=== PATIENT | female | born 1980 | race Caucasian/White ===

== ENCOUNTER → 2021-10-14 16:00 | Outpatient (CLI) | payer BC, SELFPAY ==
--- NOTE | ~2021-10-14 | MM_ITS ---
EXAMINATION: MM scrn delores implant BI w corey HISTORY: Screening mammogram TECHNIQUE: Craniocaudal and mediolateral oblique 3-D tomosynthesis images with implant displacement a nd synthetic 2-D images were generated. Craniocaudal and mediolateral oblique views of the breasts wi thout implant displacement were obtained using full field digital mammography. CAD analysis was submi tted and interpreted. COMPARISON: No prior mammogram is available for comparison at this institution. BREAST PARENCHYMAL COMPOSITION: The breasts are heterogeneously dense, which may obscure small masses . FINDINGS: There is a mass in the lower central aspect of the left breast, middle third. There are no suspicious masses, calcifications or architectural distortion. There is no bilateral subpectoral sali ne implants. IMPRESSION: 1. Focal left breast mass, lower central breast. 2. Additional mammographic views and possible breast ultrasound are recommended. BI-RADS Category 0: Incomplete: Needs additional imaging evaluation. Reviewed, dictated and finalized at location A. UTIVE ASSISTANT TO GENERAL COUNSEL IMPRESSION: 1. Focal left breast mass, lower central breast. 2. Additional mammographic views and possible breast ultrasound are recommended . BI-RADS Category 0: Incomplete: Needs additional imaging evaluation.
== END ==
PROVIDERS: Visit Provider Obstetrics & Gynecology Gynecology
DX: Z12.31 Encounter for screening mammogram for malignant neoplasm of breast (principal); R92.8 Other abnormal and inconclusive findings on diagnostic imaging of breast
CPT/HCPCS: 77063; 77067

== ENCOUNTER → 2021-10-19 08:21 | Outpatient (CLI) | payer BC, SELFPAY ==
--- NOTE | ~2021-10-19 | MMUS_ITS ---
EXAMINATION: MM diag delores implant LT w corey, US breast LT limited HISTORY: Left breast mass TECHNIQUE: Craniocaudal, mediolateral, and mediolateral oblique 3-D tomosynthesis images with implant displacement and spot compression of the left breast were performed and synthetic 2-D images were ge nerated. Mediolateral view of the left breast without implant displacement was obtained using full f ield digital mammography. CAD analysis was submitted and interpreted. High resolution limited left br east ultrasound was performed. COMPARISON: 10/14/2021 FINDINGS: MAMMOGRAPHIC FINDINGS: There is a 7 mm oval, obscured, equal density mass in the anterior/middle third of the lower breast 5 cm from the nipple. ULTRASOUND: There is a 5 mm x 3 mm oval, hypoechoic mass with an irregular margin at the 5:00 location 4 cm from the nipple which demonstrates peripheral vascularity and no posterior features. IMPRESSION: 1. Indeterminate left breast mass. 2. Ultrasound-guided biopsy is recommended. BI-RADS category 4, suspicious findings. Reviewed, dictated and finalized at location A. IMPRESSION: 1. Indeterminate left breast mass. 2. Ultrasound-guided biopsy is recommended. BI-RADS category 4, suspicious findings.
== END ==
PROVIDERS: Visit Provider Obstetrics & Gynecology Gynecology
DX: R92.8 Other abnormal and inconclusive findings on diagnostic imaging of breast (principal); N63.23 Unspecified lump in the left breast, lower outer quadrant
CPT/HCPCS: 76642; 77061; 77065; G0279

== ENCOUNTER 2024-06-03 02:24 | Day surgery (SDC) | payer BC, SELFPAY ==
[2024-05-27 16:11] VITALS: BMI 30.7
--- NOTE | 2024-05-27 16:42 | PC.NURSE ---
Report to the Outpatient Waiting Room, entrance under the green pavilion located off [facility], at 0945 on 06-03-24. Planned Procedure Time: 1145.? Time changes happen often and if your time is changed the preop area will call you the afternoon before. - You and your visitor will be asked to self-screen and do not enter if you have any COVID symptoms. Please call surgeon if you need to reschedule. - A mask is optional within the hospital at this time. Patients may have clear liquids (water, carbonated beverages, clear teas, apple juice) until 3 hours prior to surgery with a maximum of 20 ounces. 0845 - No food from midnight until time of surgery and no smoking - Infants may have breast milk until 4 hours before surgery, formula 6 hours prior to surgery. - Children will be allowed to drink immediately following surgery.? If applicable, please bring a bottle or sippy cup to assist with drinking. Juice, water, soda, and popsicles are readily available.? For infants on formula, please bring formula the day of surgery.? Pacifiers are allowed. Take only the following medications with a SIP of water on the morning of surgery: None DO NOT STOP ANY OF YOUR OTHER PRESCRIPTION MEDICATIONS PRIOR TO SURGERY EXCEPT THE FOLLOWING Medications to discontinue per physician: Vitamins and supplements Date to take last dose: 05-31-24 Please no make-up, nail ukrainian, hairspray, perfume, deodorant, or body powder the day of surgery.? No jewelry (including any body piercings) or valuables the day of surgery, leave them at home.? Please take a shower or bath the night before, or the morning of, surgery with an antibacterial soap.? Wear comfortable, loose fitting clothing.? Children are encouraged to wear pajamas. - Jewelry must be removed prior to entering the operating room.? Rings and piercings that are not removed may be cut off. - The hospital will not accept responsibility for valuables.? - Please leave all valuables, including medications, at home the day of surgery. If you are going home after surgery, a licensed tow driver must drive you home.? - NO public transportation without another adult if you receive anesthesia. - We recommend that an adult stay with you for 24 hours following discharge. - We also recommend that you do not drive, make important decision, drink alcoholic beverages, or take any drugs that were not prescribed by your health care provider for at least 24 hours after your discharge time. For Pediatric surgeries, we recommend two adults accompany the child home. Follow any additional instructions given to you from your surgeon. Telephone instructions given to Suzy Mckeon and asked if any additional questions and then verbalized understanding. Patient advised to call surgeon office or pre surgery nurse liaison [phone] if any additional questions.
--- NOTE | 2024-06-02 15:46 | P.PNAN_ITS ---
Anes - Eval Pre Procedure Procedure: Operation Date: 06/03/24 11:45 Proposed Procedures p Hysteroscopy Dilation and Curettage - Emelyn Saez MD Date/Time: 06/02/24 15:46 Pre Op Diagnosis: Abnormal Uterine Bleeding Patient Data Age: 43 Gender: F Height: 1.68 m Weight: 86.18 kg Allergies Allergy/AdvReac Type Severity Reaction Status Date / Time No Known Allergies Allergy Unknown Verified 05/27/24 16:04 Home Medications Medication Instructions Recorded Confirmed Type escitalopram oxalate 20 mg tablet 35 mg PO HS 05/27/24 05/27/24 History (Lexapro) ferrous sulfate 27 mg iron tablet 65 mg PO DAILY 05/27/24 05/27/24 History metoclopramide HCl 10 mg tablet 10 mg PO DAILY PRN Acid Reflux 05/27/24 05/27/24 History (Reglan) montelukast 10 mg tablet 10 mg PO DAILY 05/27/24 05/27/24 History (Singulair) [id number] 18 mg-FA 400 1 tablet PO DAILY 05/27/24 05/27/24 History mcg-calcium 500 mg-vit K 50 mcg tablet (Women's Multivitamin) vitamin B complex 1 tablet PO DAILY 05/27/24 05/27/24 History Patient hx anesthesia problems: none Family hx anesthesia problems: none Results Review: All pre-operative results and documents have been reviewed as part of the pre- operative evaluation. [facility] Family History Family History Other Carcinoma of colon Diabetes mellitus Family history of malignant neoplasm of breast in first degree relative Social History Social History Smoking packs per day: 0.5 Smoking cigarettes per day: 10.0 Years smoked: 20 Smoking pack-years: 10.00 Smoking status: Former smoker Tobacco type: cigarettes Second hand tobacco smoke exposure: No Smoking end date: 08/07/17 Alcohol intake: current Alcohol use details: socially Substance use: never Substance use type: does not use Living arrangements: with family Spiritual care concerns: No Exam Day of Procedure 06/02/24 15:46
--- NOTE | 2024-06-03 07:34 | WPDHPUPDATE1 ---
History and Physical Update Update Date/Time: 06/03/24 07:34 History and Physical has been reviewed, including an updated exam of the patient. There are NO changes in the patient's condition. Risks, benefits, and alternatives have been discussed and questions answered. Patient agrees to proceed with procedure.
--- NOTE | 2024-06-03 07:34 | PM.HPGS ---
History of Present Illness History of Present Illness Consent: Risks, benefits, and alternatives have been discussed and questions answered. Patient agrees to proceed with procedure. Chief complaint: Abnormal Uterine Bleeding Narrative: Suzy Mckeon is a 43 year old female with menorrhagia. Patient has irregular cycles every 15 to 23 days and lasting 7 to 10 days. Cycles have gotten heavier changing a pad every 1-1/2 hours. It was recommended to undergo D&C hysteroscopy for further evaluation. Risks of infection, bleeding, perforation, and possible pathology are discussed. Patient voices understanding and agrees to proceed. Review of Systems Review of Systems: not repeated day of surgery; patient states no changes in status [facility] Past Medical History Medical History (Updated 06/03/24 @ 07:38 by Emelyn Saez MD) Anxiety History of benign breast biopsy fibroadenoma x3 Interstitial cystitis (normal spontaneous vaginal delivery) x2 Surgical History Surgical History (Updated 06/03/24 @ 07:37 by Emelyn Saez MD) History of ankle surgery History of breast augmentation History of cholecystectomy History of sinus surgery History of tonsillectomy Family History Family History Other Carcinoma of colon Diabetes mellitus Family history of malignant neoplasm of breast in first degree relative Social History Social History Smoking packs per day: 0.5 Smoking cigarettes per day: 10.0 Years smoked: 20 Smoking pack-years: 10.00 Smoking status: Former smoker Tobacco type: cigarettes Second hand tobacco smoke exposure: No Smoking end date: 08/07/17 Alcohol intake: current Alcohol use details: socially Substance use: never Substance use type: does not use Living arrangements: with family Spiritual care concerns: No Meds Home Medications and Allergies Home Medications Medication Instructions Recorded Confirmed Type escitalopram oxalate 20 mg tablet 35 mg PO HS 05/27/24 05/27/24 History (Lexapro) ferrous sulfate 27 mg iron tablet 65 mg PO DAILY 05/27/24 05/27/24 History metoclopramide HCl 10 mg tablet 10 mg PO DAILY PRN Acid Reflux 05/27/24 05/27/24 History (Reglan) montelukast 10 mg tablet 10 mg PO DAILY 05/27/24 05/27/24 History (Singulair) [id number] 18 mg-FA 400 1 tablet PO DAILY 05/27/24 05/27/24 History mcg-calcium 500 mg-vit K 50 mcg tablet (Women's Multivitamin) vitamin B complex 1 tablet PO DAILY 05/27/24 05/27/24 History Allergies Allergy/AdvReac Type Severity Reaction Status Date / Time No Known Allergies Allergy Unknown Verified 05/27/24 16:04 Exam Const: General: healthy appearing and alert Orientation/consciousness: patient oriented x3 Resp: Effort & Inspection: normal respiratory effort GI: GI Palp: Yes Soft to palpation, No Tenderness to palpation present (GI) and No Palpable mass present : External Female Exam: normal external appearance Speculum Exam - Vagina: normal appearance of the vagina and normal vaginal discharge Speculum Exam - Cervix: normal appearance of the cervix Bimanual exam- vagina & uterus: uterine size normal and consistency normal Bimanual Exam- Adnexa, other: normal adnexae and No adnexal tenderness Neuro: General: patient oriented x3 Assessment and Plan Assessment and plan (1) Menorrhagia: Code(s): N92.0 - Excessive and frequent menstruation with regular cycle Status: Acute Assessment and Plan: plan to proceed with D&C hysteroscopy
[2024-06-03 10:24] VITALS: BMI 31.6
[2024-06-03 10:28] LABS: Hematocrit 36.8 % (37.0-47.0); Hemoglobin 12.5 g/dL (12.0-15.0)
[2024-06-03] MEDS: LACTATED RINGERS 1,000 ML 30 ML IV CONT (10:30)
[2024-06-03] MEDS: ACETAMINOPHEN 500 MG TABLET 1000 MG PO (10:33)
[2024-06-03 10:35] LABS: BEDSIDEPREGUCG Negative (Negative)
--- NOTE | 2024-06-03 10:40 | WPDANESEPPF ---
Anes - Initial Pre Proc Eval Procedure: Operation Date: 06/03/24 11:45 Proposed Procedures p Hysteroscopy Dilation and Curettage - Emelyn Saez MD Date/Time: 06/03/24 10:40 Surgeon: Emelyn Saez MD Pre Op Diagnosis: Abnormal Uterine Bleeding Patient Data Age: 43 Gender: F Height: 1.68 m Weight: 89 kg Allergies Allergy/AdvReac Type Severity Reaction Status Date / Time No Known Allergies Allergy Unknown Verified 05/27/24 16:04 Home Medications Medication Instructions Recorded Confirmed Type escitalopram oxalate 20 mg tablet 35 mg PO HS 05/27/24 05/27/24 History (Lexapro) ferrous sulfate 27 mg iron tablet 65 mg PO DAILY 05/27/24 05/27/24 History metoclopramide HCl 10 mg tablet 10 mg PO DAILY PRN Acid Reflux 05/27/24 05/27/24 History (Reglan) montelukast 10 mg tablet 10 mg PO DAILY 05/27/24 05/27/24 History (Singulair) [id number]-[id number] 18 mg-FA 400 1 tablet PO DAILY 05/27/24 05/27/24 History mcg-calcium 500 mg-vit K 50 mcg tablet (Women's Multivitamin) vitamin B complex 1 tablet PO DAILY 05/27/24 05/27/24 History Laboratory Tests 06/03/24 06/03/24 10:15 10:24 Hgb 12.5 g/dL (12.0-15.0) Hct 36.8 L % (37.0-47.0) POC Urine HCG, Qual Negative (Negative) Patient hx anesthesia problems: none Family hx anesthesia problems: none Results Review: All pre-operative results and documents have been reviewed as part of the pre-operative evaluation. [facility] Past Medical History Medical History Anxiety History of benign breast biopsy fibroadenoma x3 Interstitial cystitis (normal spontaneous vaginal delivery) x2 Surgical History Surgical History History of ankle surgery History of breast augmentation History of cholecystectomy History of sinus surgery History of tonsillectomy Family History Family History Other Carcinoma of colon Diabetes mellitus Family history of malignant neoplasm of breast in first degree relative Social History Social History Smoking packs per day: 0.5 Smoking cigarettes per day: 10.0 Years smoked: 20 Smoking pack-years: 10.00 Smoking status: Former smoker Tobacco type: cigarettes Second hand tobacco smoke exposure: No Smoking end date: 08/07/17 Alcohol intake: current Alcohol use details: socially Substance use: never Substance use type: does not use Living arrangements: with family Spiritual care concerns: No Anes - Eval Final PreProcedure Day of Procedure 06/03/24 10:40 Patient weight: obese Heart: regular rate and rhythm Lungs: clear to auscultation Airway: Mallampati scale class II Neurological: alert and oriented Last oral intake: >/= 8 hours ASA classification: II Emergent: no Anesthetic plan: proceed Anesthesia type and monitoring: general GIVS and standard monitoring Results Review: All pre-operative results and documents have been reviewed as part of the pre-operative evaluation. Informed Consent: The patient's anesthetic plan and its attendant risks and benefits were discussed with the patient/family/POA. Questions were solicited and answers provided to the satisfaction of the patient/family/POA.
--- NOTE | 2024-06-03 11:21 | W.PM.PROC2 ---
Procedure Note - Detailed Date of Procedure 06/03/24 Pre-op Diagnosis Menorrhagia Post-op Diagnosis Same Procedure Performed D&C hysteroscopy with resection of polyps Surgeon Emelyn Saez MD Anesthesia MAC Findings uterus sounds to 9cm and has multiple polyps Description of Procedure The patient is taken to the operating room and placed under anesthesia in the dorsal lithotomy position. She was prepped and draped in usual sterile fashion. [place] speculum was placed in the vagina and the cervix grasped on the anterior lip with a tenaculum. The uterus is sounded to 9cm. The diagnostic hysteroscope was placed and with the above-stated findings the small Aveeta resection device was placed. Under direct visualization all polyps were removed. The hysteroscope was then removed and the sharp OO curette was used to curette the endometrium until a good uterine cry was noted in all areas. All instruments were then removed. Sponge, needle, and instrument counts are correct per the OR staff. Patient was awakened from anesthesia and taken to recovery in stable condition. Estimated Blood Loss 5 Drains No Packing No Pathology Yes ( Endometrial shavings and curettings) Complications No immediate complications Condition Stable Disposition PACU
[2024-06-03 11:22] VITALS: BP 116/85; PULSE 66; RESP 14; O2SAT 99
[2024-06-03] MEDS: fentaNYL CITRATE INJ (*CRX) 100 MCG/2 ML VIAL 25 MCG IV PUSH ×2 (11:37→11:44)
[2024-06-03 11:40] VITALS: BP 116/78; PULSE 68; RESP 15; O2SAT 99
[2024-06-03 11:58] VITALS: BP 113/75; PULSE 67; RESP 16; O2SAT 99
[2024-06-03] MEDS: oxyCODONE HCL (*CRX) 5 MG TAB IR PO (12:13)
[2024-06-03 12:21] VITALS: BP 113/77; PULSE 64; RESP 16
== END 2024-06-03 12:25 | disposition home or self-care (01) ==
PROVIDERS: Anesthesiology; PCP Nurse Practitioner; Visit Provider Obstetrics & Gynecology Gynecology
PROC: 0U5B8ZZ Destruction of Endometrium, Via Natural or Artificial Opening Endoscopic (ICD-10-PCS; CPT 58563; principal; 2024-06-03 11:45)
DX: N84.0 Polyp of corpus uteri (principal); F41.9 Anxiety disorder, unspecified; E66.9 Obesity, unspecified; Z68.31 Body mass index [BMI] 31.0-31.9, adult; Z98.890 Other specified postprocedural states; Z90.49 Acquired absence of other specified parts of digestive tract; Z87.891 Personal history of nicotine dependence; Z80.0 Family history of malignant neoplasm of digestive organs; Z80.3 Family history of malignant neoplasm of breast
CPT/HCPCS: 58558; 36415; 85014; 85018; 88305; A9270; J2250; J2704; J3010; J7120

== ENCOUNTER 2024-11-04 08:29 | Outpatient (CLI) | payer BC, SELFPAY ==
--- OUTSIDE RECORDS SUMMARY | 2024-11-04 08:52 | XMS_ITS | Clinical Summary ---
Author Organization [facility] Address Formerly [facility], [facility] [place] [address] Care Team Providers Care Supervisor Instrument Mechanics Name Role Phone Angel LuisChayo chatman HUANG Primary Care Provider [phone] Allergies No known active allergies Medications clobetasol (TEMOVATE) 0.05 % cream 3 Active esomeprazole (NEXIUM) 40 MG capsule take 1 capsule by mouth every day before breakfast 3 Active valACYclovir (VALTREX) 500 MG tabletIndications: Cold sore Take 1 tablet (500 mg total) by mouth 2 (two) times daily. 14 tablet 1 4 Active escitalopram (LEXAPRO) 20 MG tabletIndications: Healthcare maintenance,Anxiet y Take 1.5 tablets (30 mg total) by mouth daily. 135 tablet 3 4 Active montelukast (SINGULAIR) 10 MG tabletIndications: Healthcare maintenance,Season al allergies take 1 tablet by mouth everyday at bedtime 90 tablet 3 4 Active metoclopramide (REGLAN) 10 MG tabletIndications: Healthcare maintenance,Gastro esophageal reflux disease without esophagitis take 1 tablet by mouth twice a day 60 tablet 4 Active celecoxib (CELEBREX) 200 MG capsuleIndications :Healthcare maintenance,Spondy losis of cervical region without myelopathy or radiculopathy Take 1 capsule (200 mg total) by mouth daily. 90 capsule 3 4 Active nystatin (MYCOSTATIN) creamIndications:T inea pedis of both feet Apply topically 2 (two) times daily. 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 Overview (01/26/2023): NONTOX NODUL GOITER NOS Encounters Date Type Department Care Team Description 09/27/2024 [employer] Message Enc [facility] Family and Sports Medicine - [place] [phone] Poirot, Chayo, HUANG Athletes Foot from Last 3 Months Immunizations Name Administration Dates Next Due Influenza (Generic) 06/07/2021 Influenza Adult (Generic) 07/05/2024,02/2022,04/29/2021, 020,07/09/2019 PFIZER COVID-19 (ORIGINAL FORMULATION, PURPLE CAP) mRNA, LNP-S, PF, 30 MCG/0.3 ML DOSE 08/24/2021,11/03/2020,10/06/2020 Tdap (Generic) 11/23/2018 Family History Medical History Relation Comments Cancer Father basal cell cance r Crohns Disease Father Cancer Maternal Grandfather colon cance r Arthritis Maternal Grandmother Asthma Paternal Grandmother COPD Paternal Grandmother Diabetes Paternal Grandmother Relation Status Comments Father Maternal Grandfather Maternal Grandmother Paternal Grandmother Social History Tobacco Use Types Packs/Day Years Used Date Smoking Tobacco: Former Cigarettes 0.3 15 1 08/30/2002 - 06/30/2018 Smokeless Tobacco: Never Tobacco Cessation:Counseling Given: No Alcohol Use Standard Drinks/Week Comments Yes 3.3 (1 standard drink = 0.6 oz p ure alcohol) PHQ-2 Answer Date Recorded Patient Health Questionnaire-2 Score 0 01/31/2024 Comments Unknown Sex and Gender Information Value Date Recorded Sex Assigned at Female 01/31/2024 10:47 AM CDT Legal Sex Female 7:56 PM CDT Gender Identity Female 01/31/2024 10:47 AM CDT Sexual Orientation Straight 01/31/2024 10 :47 AM CDT Last Filed Vital Signs Vital Sign Reading Time Taken Comments Blood Pressure 104/72 01/31/2024 2:42 PM CDT Pulse 76 01/31/2024 2:42 PM CDT Temperature 36.7 C (98 F) 01/31/2024 2:42 PM CDT Respiratory Rate 21 01/31/2024 2:42 PM CDT Oxygen Saturation 99% 01/31/2024 2:42 PM CDT Inhaled Oxygen Concentration - - Weight 83 kg (183 lb) 01/31/2024 2:42 PM CDT Height 167.6 cm (5' 6 ) 01/31/2024 2:42 PM CDT Body Mass Index 29.54 01/31/2024 2:42 PM CDT Plan of Treatment Health Maintenance Due Date Last Done Comments Cervical Cancer Screening Pap Smear (Age 30 to 64) Every 3 Years 1981 Hepatitis C 1999 Hepatitis B Vaccines (1 of 3 - 19+ 3-dose series) 2000 Cervical Cancer Screening Pap with HPV Testing (Age 30 to 64) Every 5 Years 2011 Cervical Cancer Screening with HPV 2011 COVID-19 Vaccine ( season) 2024 08/24/2021, 11/03/2020, 10/06/2020 PHQ-2 ([employer]ician [place]) 08/07/2024 01/31/2024 Annual Physical 01/30/2025 01/31/2024, 01/26/2023 Mammogram Screening 03/13/2026 03/13/2024, 3 DTaP, Tdap and Td Vaccines (2 - Td or Tdap) 11/23/2028 11/23/2018 Influenza Adult Completed 07/05/2024, 1102/2022, 06/07/2021, Additional history exists HPV Vaccines Aged Out No longer eligi ble based on patient's age to complete this topic Meningococcal B Vaccine Aged Out No l onger eligible based on patient's age to complete this topic Meningococcal Vaccine Aged Out No shayla gonsalo eligible based on patient's age to complete this topic Pneumococcal Vaccine: Pediatrics (0 to 5 Years) and At-Risk Patients (6 to 64 Years) Aged Out No longer eligible based on patient's age to complete this topic RSV Immunizations Under 20 Months Aged Out No longer eligible based on patient's age to complete this topic Procedures Procedure Name Priority Date/Time Associated Diagnosis Comments MAMMOGRAM GENERIC (SCAN ORDER) 03/13/2024 from Last 3 Months or Most Recently Relevant to Health Maintenance Results * MAMMOGRAM GENERIC (SCAN ORDER) (03/13/2024) Anatomical Region Laterality Modality Other 03/13/2024 [facility] Scanned SCANNING Final Resu lt from Last 3 Months or Most Recently Relevant to Health Maintenance Additional Health Concerns Infection Onset Date Last Indicated 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
--- OUTSIDE RECORDS SUMMARY | 2024-11-04 08:52 | XMS_ITS | Encounter Summary ---
Author Organization [facility] Address [address] [place] [address] Care Team Providers Care Mergers And Acquisitions Consultant Name Role Phone Chayo Berman Primary Care Provider [phone] Encounter Details Date Type Department Care Team (Late st Contact Info) Description 03/15/2023 [employer] Message Enc [facility] Medical Group Family and Sports Medicine - [place] [address] [place] [address] Chayo Berman APNP [address] [place] [address] Phentermine Social History Tobacco Use Types Packs/Day Years Used Date Smoking Tobacco: Former Cigarettes 0.3 15 1 08/30/2002 - 06/30/2018 Alcohol Use Standard Drinks/Week Comments Yes 3.3 (1 standard drink = 0.6 oz p ure alcohol) PHQ-2 Answer Date Recorded Patient Health Questionnaire-2 Score 1 01/26/2023 Comments Unknown Sex and Gender Information Value Date Recorded Sex Assigned at Female 01/31/2024 10:47 AM CDT Legal Sex Female 7:56 PM CDT Gender Identity Female 01/31/2024 10:47 AM CDT Sexual Orientation Straight 01/31/2024 10 :47 AM CDT documented as of this encounter Plan of Treatment Not on file documented as of this encounter Visit Diagnoses Not on filedocumented in this encounter Additional Health Concerns Infection Onset Date Last Indicated Resolved Time MRSA 03/16/2017 03/16/2017 Assessment Noted Time PHQ-9 Depression Total Score: 6 01/27/20 23 4:06 PM CDT documented as of this encounter Care Teams Mergers And Acquisitions Consultant Relationship Specialty Start Date End Date Chayo Berman APNP [address] [place] [address] PCP - General NURSE PRACTITIONER 01/26/23 documented as of this encounter
--- OUTSIDE RECORDS SUMMARY | 2024-11-04 08:52 | XMS_ITS | Encounter Summary ---
Author Organization [facility] Address [address] [place] [address] Care Team Providers Care Medical Claims Manager Name Role Phone Leo De La Rosa DO Primary Care Provider Chayo Berman Primary Care Provider [phone] Encounter Details Date Type Department Care Team ([facility] Contact Info) Description 09/14/2022 [employer] Message Career Element [facility] [employer] [facility] [address] [facility] [place] [place] [address] [employer] Engine, [facility] Provider Name Change Social History Tobacco Use Types Packs/Day Years Used Date Smoking Tobacco: Never Assessed Comments Unknown Sex and Gender Information Value [...] Last Indicated Resolved Time MRSA 03/16/2017 03/16/2017 documented as of this encounter Care Teams Medical Claims Manager Relationship Specialty Start Date End Date Leo De La Rosa DO [address] [place], [place] [id number] PCP - General 01/23/23 01/25/23 Chayo Berman APNP [address] [place] [address] PCP - General NURSE PRACTITIONER 01/26/23 documented as of this encounter
[2024-11-04 09:39] LABS: Hematocrit 37.9 % (37.0-47.0); Hemoglobin 12.3 g/dL (12.0-15.0)
== END 2024-11-04 08:30 | disposition home or self-care (01) ==
LOC: ANHSURGERY 08:32
PROVIDERS: Anesthesiology; PCP Nurse Practitioner; Visit Provider Obstetrics & Gynecology Gynecology
DX: D64.9 Anemia, unspecified (principal)
CPT/HCPCS: 36415; 85014; 85018

== ENCOUNTER 2024-11-11 01:37 | Day surgery (SDC) | payer BC, SELFPAY ==
[2024-10-28 17:03] VITALS: BMI 32.3
--- NOTE | 2024-10-28 17:30 | PC.NURSE ---
Report to the Outpatient Waiting Room, entrance under the green pavilion located off [facility], at 0800 on 11-11-24. Planned Procedure Time: 1000.? Time changes happen often and if your time is changed the preop area will call you the afternoon before. - You and your visitor will be asked to self-screen and do not enter if you have any COVID symptoms. Please call surgeon if you need to reschedule. - A mask is optional within the hospital at this time. Patients may have clear liquids (water, carbonated beverages, clear teas, apple juice) until 3 hours prior to surgery with a maximum of 20 ounces. 0700 - No food from midnight until time of surgery and no smoking, or chewing tobacco (or any form of nicotine). No chewing gum, candy or mints. - Infants may have breast milk until 4 hours before surgery, formula 6 hours prior to surgery. - Children will be allowed to drink immediately following surgery.? If applicable, please bring a bottle or sippy cup to assist with drinking. Juice, water, soda, and popsicles are readily available.? For infants on formula, please bring formula the day of surgery.? Pacifiers are allowed. Take only the following medications with a SIP of water on the morning of surgery: None DO NOT STOP ANY OF YOUR OTHER PRESCRIPTION MEDICATIONS PRIOR TO SURGERY EXCEPT THE FOLLOWING Hold all vitamins and supplements for 3 days per anesthesiologist. Medications to discontinue per physician: vitamins and supplements Date to take last dose: 11-08-24 Please no make-up, nail spanish, hairspray, perfume, deodorant, or body powder the day of surgery.? No jewelry (including any body piercings) or valuables the day of surgery, leave them at home.? Please take a shower or bath the night before, or the morning of, surgery with an antibacterial soap.? Wear comfortable, loose fitting clothing.? Children are encouraged to wear pajamas. - Jewelry must be removed prior to entering the operating room.? Rings and piercings that are not removed may be cut off. - The hospital will not accept responsibility for valuables.? - Please leave all valuables, including medications, at home the day of surgery. If you are going home after surgery, a licensed school bus driver must drive you home.? - NO public transportation without another adult if you receive anesthesia. - We recommend that an adult stay with you for 24 hours following discharge. - We also recommend that you do not drive, make important decision, drink alcoholic beverages, or take any drugs that were not prescribed by your health care provider for at least 24 hours after your discharge time. For Pediatric surgeries, we recommend two adults accompany the child home. Follow any additional instructions given to you from your surgeon. Telephone instructions given to Suzy Mckeon and asked if any additional questions and then verbalized understanding. Patient advised to call surgeon office or pre surgery nurse liaison [phone] if any additional questions.
--- NOTE | 2024-11-10 10:30 | WPDANESEPPF ---
Anes - Initial Pre Proc Eval Procedure: Operation Date: 11/11/24 10:00 Proposed Procedures p Hysteroscopy with Swapna Endometrial Ablation - Emelyn Saez MD Date/Time: 11/10/24 10:30 Surgeon: Emelyn Saez MD Pre Op Diagnosis: Menorrhagia Patient Data Age: 44 Gender: F Height: 1.68 m Weight: 90.72 kg Allergies Allergy/AdvReac Type Severity Reaction Status Date / Time No Known Allergies Allergy Unknown Verified 11/11/24 08:52 Home Medications ?Medication ?Instructions ?Recorded ?Confirmed ?Type escitalopram oxalate 20 mg tablet 30 mg PO HS 05/27/24 11/11/24 History (Lexapro) ferrous sulfate 27 mg iron tablet 65 mg PO DAILY 05/27/24 11/11/24 History metoclopramide HCl 10 mg tablet 10 mg PO DAILY PRN Acid Reflux 05/27/24 11/11/24 History (Reglan) montelukast 10 mg tablet 10 mg PO DAILY 05/27/24 11/11/24 History (Singulair) vitamin B complex 1 tablet PO DAILY 05/27/24 11/11/24 History cetirizine 10 mg capsule (Allergy 10 mg PO DAILY 10/28/24 11/11/24 History Relief (cetirizine)) magnesium 250 mg tablet 250 mg PO HS 10/28/24 10/28/24 History vitamin D3 125 mcg (5,000 1 cap PO DAILY 10/28/24 11/11/24 History unit)-vitamin K2 90 mcg capsule Patient hx anesthesia problems: none Family hx anesthesia problems: none Results Review: All pre-operative results and documents have been reviewed as part of the pre-operative evaluation. [facility] Past Medical History Medical History (normal spontaneous vaginal delivery) x2 History of benign breast biopsy fibroadenoma x3 Interstitial cystitis Anxiety Surgical History Surgical History (Updated 11/11/24 @ 07:53 by Emelyn Saez MD) History of hysteroscopy History of cholecystectomy History of breast augmentation History of ankle surgery History of tonsillectomy History of sinus surgery Family History Family History Other Carcinoma of colon Diabetes mellitus Family history of malignant neoplasm of breast in first degree relative Social History Social History Smoking packs per day: 0.5 Smoking cigarettes per day: 10.0 Years smoked: 15 Smoking pack-years: 7.50 Smoking status: Former smoker Tobacco type: cigarettes Second hand tobacco smoke exposure: No Smoking end date: 08/07/17 Alcohol intake: current Alcohol use details: socially Substance use: never Substance use type: does not use Living arrangements: with family Spiritual care concerns: No Anes - Eval Final PreProcedure Day of Procedure 11/10/24 10:30 Patient weight: obese Heart: regular rate and rhythm Lungs: clear to auscultation Airway: Mallampati scale class II Neurological: alert and oriented Last oral intake: >/= 8 hours ASA classification: II Emergent: no Anesthetic plan: proceed Anesthesia type and monitoring: general GIVS and standard monitoring Results Review: All pre-operative results and documents have been reviewed as part of the pre-operative evaluation. Informed Consent: The patient's anesthetic plan and its attendant risks and benefits were discussed with the patient/family/POA. Questions were solicited and answers provided to the satisfaction of the patient/family/POA.
--- OUTSIDE RECORDS SUMMARY | 2024-11-11 01:40 | XMS_ITS | Encounter Summary ---
Author Organization [facility] Address [address] [place] [address] Care Team Providers Care Test Boring Crew Chief Name Role Phone Leo De La Rosa DO Primary Care Provider [phone] Chayo Berman Primary Care Provider [phone] Encounter Details Date Type Department Care Team ([facility] Contact Info) Description 09/14/2022 [employer]ia Message [employer] [facility] [employer] [facility] [address] [place] [address] [place] [address] [email or web address], [facility] Provider Name Change Social History Tobacco Use [...] documented as of this encounter Care Teams Test Boring Crew Chief Relationship Specialty Start Date End Date Leo De La Rosa DO [address] [place], [place] [phone] PCP - General 01/23/23 01/25/23 Chayo Berman APNP [address] [place] [address] PCP - General NURSE PRACTITIONER 01/26/23 documented as of this encounter
--- OUTSIDE RECORDS SUMMARY | 2024-11-11 01:40 | XMS_ITS | Clinical Summary ---
Author Organization [facility] Address [address] [place] [address] Care Team Providers Care Mold Maker Apprentice Name Role Phone Emelyn Saez MD Unavailable [phone] Chayo Berman NP Primary Care Provider [phone] Allergies Active Allergy Reactions Criticality Noted Date Comments Amoxicillin-Pot Clavulanate Rash Medium 01/08/2019 oral and vulvovaginal thrush Medications cetirizine (ZyrTEC) 10 mg tablet Take 1 tablet (10 mg total) by mouth daily 90 tablet 3 9 Active clobetasoL (TEMOVATE) 0.05 % external solution 1 PREET TOPICAL DAILY FOR 30 DAY INSTR APPLY TO AFFECTED AREAS TO SCALP DAILY NEEDED 1 Active traZODone (DESYREL) 100 mg tabletIndicatio ns:Bile reflux gastritis Take 1 tablet (100 mg total) by mouth nightly 90 tablet 3 2 Active escitalopram (LEXAPRO) 20 mg tablet Take 1 tablet (20 mg total) by mouth daily 90 tablet 3 2 Active celecoxib (CeleBREX) 200 mg capsule TAKE 1 CAPSULE BY MOUTH EVERY DAY 90 capsule 3 2 Active metoclopramide (REGLAN) 10 mg tabletIndicatio ns:Bile reflux gastritis TAKE 1 TABLET (10 MG TOTAL) BY MOUTH 4 (FOUR) TIMES A DAY (WITH MEALS AND NIGHTLY) WEEK ONE JUST AT BEDTIME THEN INCREASE TOLERATED IF NEEDED 120 tablet 1 3 Active montelukast (SINGULAIR) 10 mg tablet TAKE 1 TABLET (10 MG TOTAL) BY MOUTH NIGHTLY PATIEN MUST KEEP FE APPT FOR FUTURE REFILLS. 90 tablet [address] (NexIUM) 40 mg capsule TAKE 1 CAPSULE BY MOUTH EVERY DAY BEFORE BREAKFAST 90 capsule 1 3 Active Active Problems Problem Noted Date Diagnosed Date Adjustment insomnia 10/28/2021 Bile reflux gastritis 10/28/2021 Abdominal pain 01/26/2021 Overview (01/26/2021): Added automatically from request for surgery [id number] FH: Crohn's disease 01/26/2021 Overview (01/26/2021): Added automatically from request for surgery [id number] Seasonal allergic rhinitis 01/08/2019 Fibrocystic breast disease (FCBD) 01/08/2019 Thyroid goiter 01/08/2019 GERD without esophagitis 12/22/2016 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 Overview (11/10/2016): NONTOX NODUL GOITER NOS Arthritis Overview (09/11/2020): Arthritis Immunizations Immunization Administration Dates Next Due Influenza, Quadrivalent, Spl it, Preservative Free, Intramuscular 04/29/2021,04/03/2020,07/09/2019 Pfizer SARS-CoV-2 Monovalent Vaccination (12+ Yrs) PURPLE 11/03/2020,10/06/2020 Tdap 11/23/2018 Surgical History Surgery Date Site/Laterality Comments CHOLECYSTECTOMY 08/07/2009 - 08/06/2010 Cholecystectomy TONSILLECTOMY 08/07/1984 - 08/06/1985 Tonsillectomy BREAST BIOPSY 08/07/2004 - 08/06/2005 Right BREAST BIOPSY 08/07/2005 - 08/06/2006 Left BREAST BIOPSY 08/07/2015 - 08/06/2016 Right BREAST SURGERY 08/07/2006 - 08/06/2007 BREAST BIOPSY 11/29/2021 Left Medical History Medical History Date Comments Arthritis Arthritis Hx Other Medical septic ankle Depression Family History Medical History Relation Name Comments No Known Problems Father Colon cancer Maternal Grandfather Thyroid disease Mother Thyroid diso rder; Lung cancer Mother's Brother Lung cancer Mother's Sister Diabetes type II Other Family hist ory of Diabetes -Type 2; Relation Name Status Comments Father Alive Maternal Grandfather Mother Alive Mother's Brother Mother's Sister Other Social History Tobacco Use Types Packs/Day Years Used Date Smoking Tobacco: Former Cigarettes 0.3 10 2017 Smokeless Tobacco: Never Alcohol Use Standard Drinks/Week Comments Yes 0 (1 standard drink = 0.6 oz pur e alcohol) AUDIT-C Answer Date Recorded Q1: How often do you have a drink containing alc ohol? Monthly or less 11/19/2021 Average Number of Drinks Not on file 022 Frequency of Binge Drinking Not on file 11/05 PHQ-2 Answer Date Recorded PHQ-2 Total Score (If total score is 3 or more points, staff should administer the PHQ-9) 5 09/06/2021 Comments Unknown Sex and Gender Information Value Date Recorded Sex Assigned at Not on file Legal Sex Female 9:58 PM MANAGER FIELD SALES Gender Identity Not on file Sexual Orientation Not on file Obstetrics History Last Filed Vital Signs Vital Sign Reading Time Taken Comments Blood Pressure 90/66 04/01/2022 4:28 PM CDT Pulse 72 04/01/2022 4:28 PM CDT Temperature 36.2 C (97.2 F) 04/01/2022 4:28 PM CDT Respiratory Rate 18 04/01/2022 4:28 PM CDT Oxygen Saturation 99% 04/01/2022 4:28 PM CDT Inhaled Oxygen Concentration - - Weight 79.8 kg (175 lb 14.4 oz) 04/01/2022 4:28 PM CDT Height 168.9 cm (5' 6.5 ) 04/01/2022 4:28 PM CDT Body Mass Index 27.97 04/01/2022 4:28 PM CDT Plan of Treatment Health Maintenance Due Date Last Done Comments Cervical Cancer Screening 1981 Hepatitis C Screening 1981 Hepatitis B Screening 1999 Depression Screening 09/06/2022 09/06/2021, 09/06/2021, 01/26/2021, Additional history exists Regular Well Visit/Exam 18-64 10/28/2022 10/28/2021, 09/11/2020, 01/08/2019 Covid-19 Vaccine ( season) 2024 08/24/2021, 11/03/2020, 10/06/2020 Breast Cancer Screening-Mammogram 03/13/2025 03/13/2024, 12/13/2022 Influenza Vaccine (Season Ended) 2025 06/13/2022, 06/07/2021, 04/29/2021, Additional history exists DTaP/Tdap/Td Vaccine (2 - Td or Tdap) 11/23/2028 11/23/2018 HPV Vaccines Aged Out No longer eligi ble based on patient's age to complete this topic Pneumococcal vaccine <65 Aged Out No longer eligible based on patient's age to complete this topic Varicella Vaccines Discontinued Medical Devices Implanted Type Area Manager Business Device Identifier Shelf Expiration Date Model / Serial / Lot [employer] Peripheral Vascular Ultraclip Bard 17ga 10cm 2 Trigger Permanent Ultrasound [id number] - [id number] Implanted:Qty: 1 on 11/29/2021 at [facility] [employer] [id number] / / Procedures Procedure Name Priority Date/Time Associated Diagnosis Comments SCREENING MAMMOGRAM BILATERAL W RADHA W IMPLANTS Schedule Routine, Read Routine (OP Routine) 03/13/2024 7:23 AM CDT Screening mammogram, encounter for from Last 3 Months or Most Recently Relevant to Health Maintenance Results * Screening Mammogram Bilateral W Radha W Implants (03/13/2024 7:23 AM CDT) Anatomical Region Laterality Modality Breast Bilateral Mammography Narrative 03/14/2024 9:13 AM CDT Mammogram Technique: Bilateral Digital Breast Tomosynthesis, Bilateral C-view 2D Screening mammogram. Views obtained: bilateral craniocaudal; bilateral craniocaudal implant displaced; bilateral mediolateral oblique; and bilateral mediolateral oblique implant displaced. Computer Aided Detection was performed. Mammogram Findings: The present examination has been compared to prior imaging studies performed at [facility] on 12/13/2022, and at [facility] on 10/14/2021 and 10/19/2021. The breasts are heterogeneously dense, which may obscure small masses. There is no suspicious abnormality in either breast. Impression: There is no mammographic evidence of malignancy. Annual screening mammography is recommended. If supplemental screening is desired, breast MRI would be recommended in this patient with heterogeneously dense breasts. OVERALL FINAL ASSESSMENT: BI-RADS CATEGORY 1: Negative. Procedure Note Emelyn Snyder MD - 03/14/2024 Mammogram Technique: Bilateral Digital Breast Tomosynthesis, Bilateral C-view 2D Screening mammogram. Views obtained: bilateral craniocaudal; bilateralcraniocaudal implant displaced; bilateral mediolateral oblique; and bilateral mediolateral oblique implant displaced. Computer Aided Detection was performed. Mammogram Findings: The present examination has been compared to prior imaging studies performed at [facility] on 12/13/2022, and at [facility] on 10/14/2021 and 10/19/2021. The breasts are heterogeneously dense, which may obscure small masses. There is no suspicious abnormality in either breast. Impression: There is no mammographic evidence of malignancy. Annual screening mammography is recommended. If supplemental screeningis desired, breast MRI would be recommended in this patient with heterogeneously dense breasts. OVERALL FINAL ASSESSMENT: BI-RADS CATEGORY 1: Negative. us Self Screening Mammogram IMG MAMMO PROCEDURES Fi nal Result from Last 3 Months or Most Recently Relevant to Health Maintenance Insurance [employer] [facility] BLUE [place] Care Teams Mold Maker Apprentice Relationship Specialty Start Date End Date Chayo Berman NP [address] [facility] [address] [place] [address] PCP - General Nurse Practitioner 02/16/24 Emelyn Saez MD [address] [place] [address] Referring Physician Gynecology 10/29/21
--- OUTSIDE RECORDS SUMMARY | 2024-11-11 01:40 | XMS_ITS | Encounter Summary ---
Author Organization [facility] Address [address] [place] [address] Care Team Providers Care Locomotive Observer Name Role Phone Chayo Berman Primary Care Provider [phone] Encounter Details Date Type Department Care Team (Late st Contact Info) Description 03/15/2023 [employer] Message Enc [facility] Medical Group Family and Sports Medicine - [place] [address] [place] [address] Chayo Berman APNP [address] [place] [address] Phentermine Social History Tobacco Use Types Packs/Day [...] documented as of this encounter Care Teams Locomotive Observer Relationship Specialty Start Date End Date Chayo Berman APNP [address] [place] [address] PCP - General NURSE PRACTITIONER 01/26/23 documented as of this encounter
--- OUTSIDE RECORDS SUMMARY | 2024-11-11 01:40 | XMS_ITS | Clinical Summary ---
Author Organization [facility] [place] Address [facility] [place] [address] Care Team Providers Care Rn Gyn Name Role Phone Angel LuisChayo chatman HUANG Primary Care Provider [phone] Allergies No known active allergies Medications clobetasol [...] (01/26/2023): Added automatically from request for surgery [id number] FH: Crohn's disease 01/26/2021 Overview (01/26/2023): Added automatically from request for surgery [id number] Fibrocystic breast disease (FCBD) 01/08/2019 Seasonal allergic rhinitis 01/08/2019 Thyroid goiter 01/08/2019 GERD without esophagitis 12/22/2016 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 Overview (01/26/2023): NONTOX NODUL GOITER NOS Encounters Date Type Department Care Team Description 09/27/2024 Affinity Edget Message Enc [facility] Family [facility] Sports Medicine - [place] [id number] Poirot, Chayo, HUANG Athletes Foot from Last [...] Date Last Done Comments Cervical Cancer Screening Pa p Smear (Age 30 to 64) Every 3 Years 1981 Hepatitis C 1999 Hepatitis B Vaccines (1 of 3 - 19+ 3-dose series) 2000 Cervical Cancer Screening Pa p with HPV Testing (Age 30 to 64) Every 5 Years 2011 Cervical Cancer Screening [facility] HPV 2011 COVID-19 Vaccine (2023- 5 season) 2024 08/24/2021, 11/03/2020, 10/06/2020 PHQ-2 (Physician [place]) 08/07/2024 01/31/2024 Annual Physical 01/30/2025 01/31/2024, 01/26/2023 Mammogram Screening 03/13/2026 03/13/2024, 12/15/2022 DTaP, Tdap and Td Vaccines ( 2 - Td or Tdap) 11/23/2028 11/23/2018 HPV [...] 64 Years) Aged Out No longer eligible b ased on patient's age to complete this topic RSV Immunizations Under 20 Months Aged Out No longer eligible b ased on patient's age to complete this topic [...] Date Last Indicated MRSA 03/16/2017 03/16/2017 Insurance Care Teams Rn Gyn Relationship Specialty Start Date End Date Chayo Berman APNP [address] [place] [address] PCP - General NURSE PRACTITIONER 01/26/23
--- OUTSIDE RECORDS SUMMARY | 2024-11-11 01:40 | XMS_ITS | Referral Summary ---
Author Organization [facility] Address [address] [place] [address] Care Team Providers Care Manager Trainee Name Role Phone Emelyn Saez MD Unavailable Chayo Berman NP Primary Care Provider [phone] [...] TOTAL) BY MOUTH NIGHTLY PATIEN MUST KEEP FEB APPT FOR FUTURE REFILLS. 90 tablet [address] (NexIUM) 40 mg capsule TAKE 1 CAPSULE BY MOUTH EVERY DAY BEFORE BREAKFAST 90 capsule 1 3 Active Active Problems Problem Noted Date Diagnosed Date Adjustment insomnia 10/28/2021 Bile reflux gastritis 10/28/2021 Abdominal pain 01/26/2021 Overview (01/26/2021): Added automatically from request for surgery [id number] FH: Crohn's disease 01/26/2021 Overview (01/26/2021): Added automatically from request for surgery [id number] Seasonal allergic rhinitis 01/08/2019 Fibrocystic breast disease (FCBD) 01/08/2019 Thyroid goiter 01/08/2019 GERD without esophagitis 12/22/2016 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 Overview (11/10/2016): NONTOX NODUL GOITER NOS Arthritis Overview (09/11/2020): Arthritis Immunizations Immunization Administration Dates Next Due Influenza, Quadrivalent, Spl it, Preservative Free, Intramuscular 04/29/2021,04/03/2020,07/09/2019 Pfizer SARS-CoV-2 Monovalent Vaccination (12+ Yrs) PURPLE 11/03/2020,10/06/2020 Tdap 11/23/2018 Social History Tobacco Use Types Packs/Day Years Used Date Smoking Tobacco: Former Cigarettes 0.3 10 2 2017 Smokeless Tobacco: Never Alcohol Use Standard [...] file 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 Gender Identity Not on file Sexual Orientation Not on file Last Filed Vital Signs Vital Sign Reading [...] 04/01/2022 4:28 PM CDT Plan of Treatment Not on file Medical Devices Implanted Type Area Poolroom Table Attendant Device Identifier Shelf Expiration Date Model / Serial / Lot Bard Peripheral Vascular Ultraclip Bard 17ga 10cm 2 Trigger Permanent Ultrasound [id number] - [id number] Implanted:Qty: 1 on 11/29/2021 at [facility] [employer] [id number] / / Procedures Procedure Name Priority Date/Time [...] compared to prior imaging studies performed at [facility] on 12/13/2022, and at [facility] on 10/14/2021 and 10/19/2021. The breasts are [...] compared to prior imaging studies performed at [facility] on 12/13/2022, and at [facility] on 10/14/2021 and 10/19/2021. The breasts are [...] Most Recently Relevant to Health Maintenance Insurance [place] [employer] [facility] [place] Care Teams Manager Trainee Relationship Specialty Start Date End Date Chayo Berman NP [address] [facility] [address] [facility] [address] [place] [address] PCP - General Nurse Practitioner 02/16/24 Emelyn Saez MD [address] [place] [address] Referring Physician Gynecology 10/29/21
--- OUTSIDE RECORDS SUMMARY | 2024-11-11 01:40 | XMS_ITS | Encounter Summary ---
Author Organization [facility] Address [address] [place] [id number] Care Team Providers Care Environmental Lawyer Name Role Phone Suzy Meeks MD Primary Care Provider [phone] Reason for Visit * Diagnostic Imaging (Routine) - Closed Specialty Diagnoses / Procedures Referred By Contac t Referred To Contact Procedures Breast Imaging US Outside Reference Jackie Gonzales, JAMES Phone: tel: fax: Referral ID Status Reason Start Date Expiration Date Visits Re quested Visits Authorized [id number] Closed 11/09/2021 12/09/2022 1 1 Encounter Details Date Type Department Care Team (Late st Contact Info) Description 11/16/2015 Hospital Encounter 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 Gender Identity Not on file Sexual Orientation Not on file documented as of this encounter Functional Status documented as of this encounter Plan of Treatment Not on file documented as of this encounter Procedures Procedure Name Priority Date/Time Associated Diagnosis Comments BREAST IMAGING US OUTSIDE REFERENCE Routine 11/16/2015 12:00 AM CDT documented in this encounter Results * Breast Imaging US Outside Reference (11/16/2015 12:00 AM CDT) Impressions [facility] - 11/09/2021 9:19 AM CDT These images are for Reference purposes only and have not been reviewed by [facility] Radiology. There will be no report generated by a [facility] Radiologist. Narrative [facility] - 11/09/2021 9:19 AM CDT EXAMINATION: Images For Reference Purposes Only us Jackie Gonzales PUBLIC HEALTH REPRESENTATIVE IMG MAMMO PROCEDURES Final Re sult [facility] documented in this encounter Visit Diagnoses Not on filedocumented in this encounter Additional Health Concerns Infection Onset Date Last Indicated Resolved Time MRSA Comment:200906/27/2012 06/26/2012 03/24/2021 5:00 AM C DT COVID: Suspected 02/19/2020 02/19/2020 02/21/2020 2:04 PM CDT Respiratory Infection (KATHLEEN), contact + droplet Comment:Automatically added due to negative COVID-19 result. 02/21/2020 02/21/2020 03/06/2020 3:0 6 AM CDT COVID: Suspected 04/07/2021 04/07/2021 04/07/2021 8:59 PM CDT COVID19 04/07/2021 04/07/2021 04/21/2021 3:05 AM CDT COVID: Recovered Comment:Added based on recent COVID infection. 04/21/2021 07/26/2021 08/19/2021 3:[address] documented as of this encounter Care Teams Environmental Lawyer Relationship Specialty Start Date End Date Suzy Meeks MD PCP - General 09/09/10 06/08/17 documented as of this encounter
--- NOTE | 2024-11-11 07:33 | WPDHPUPDATE1 ---
History and Physical Update Update Date/Time: 11/11/24 07:33 History and Physical has been reviewed, including an updated exam of the patient. There are NO changes in the patient's condition. Risks, benefits, and alternatives have been discussed and questions answered. Patient agrees to proceed with procedure.
--- NOTE | 2024-11-11 07:33 | PM.HPGS ---
History of Present Illness History of Present Illness Consent: Risks, benefits, and alternatives have been discussed and questions answered. Patient agrees to proceed with procedure. Chief complaint: Menorrhagia Narrative: Suzy Mckeon is a 44 year old female with menorrhagia. Patient underwent D&C hysteroscopy in June of 2024 and several polyps were removed. Patient had continued heavy bleeding and wishes to proceed with endometrial ablation. Risks of infection, bleeding, perforation, and failure are reviewed. Patient voices understanding and agrees to proceed. Patient was aware this is not a control. Her current partner has a vasectomy. Should she have a different partner she would need to use control. Review of Systems Review of Systems: not repeated day of surgery; patient states no changes in status PMFSH Past Medical History Medical History (normal spontaneous vaginal delivery) x2 History of benign breast biopsy fibroadenoma x3 Interstitial cystitis Anxiety Surgical History Surgical History (Updated 11/11/24 @ 07:53 by Emelyn Saez MD) History of hysteroscopy History of cholecystectomy History of breast augmentation History of ankle surgery History of tonsillectomy History of sinus surgery Family History Family History Other Carcinoma of colon Diabetes mellitus Family history of malignant neoplasm of breast in first degree relative Social History Social History Smoking packs per day: 0.5 Smoking cigarettes per day: 10.0 Years smoked: 15 Smoking pack-years: 7.50 Smoking status: Former smoker Tobacco type: cigarettes Second hand tobacco smoke exposure: No Smoking end date: 08/07/17 Alcohol intake: current Alcohol use details: socially Substance use: never Substance use type: does not use Living arrangements: with family Spiritual care concerns: No Meds Home Medications and Allergies Home Medications ?Medication ?Instructions ?Recorded ?Confirmed ?Type escitalopram oxalate 20 mg tablet 30 mg PO HS 05/27/24 10/28/24 History (Lexapro) ferrous sulfate 27 mg iron tablet 65 mg PO DAILY 05/27/24 10/28/24 History metoclopramide HCl 10 mg tablet 10 mg PO DAILY PRN Acid Reflux 05/27/24 10/28/24 History (Reglan) montelukast 10 mg tablet 10 mg PO DAILY 05/27/24 10/28/24 History (Singulair) vitamin B complex 1 tablet PO DAILY 05/27/24 10/28/24 History cetirizine 10 mg capsule (Allergy 10 mg PO DAILY 10/28/24 10/28/24 History Relief (cetirizine)) magnesium 250 mg tablet 250 mg PO HS 10/28/24 10/28/24 History vitamin D3 125 mcg (5,000 1 cap PO DAILY 10/28/24 10/28/24 History unit)-vitamin K2 90 mcg capsule Allergies Allergy/AdvReac Type Severity Reaction Status Date / Time No Known Allergies Allergy Unknown Verified 10/28/24 16:56 Exam Const: General: healthy appearing and alert Orientation/consciousness: patient oriented x3 Resp: Effort & Inspection: normal respiratory effort GI: GI Palp: Yes Soft to palpation, No Tenderness to palpation present (GI) and No Palpable mass present : External Female Exam: normal external appearance Speculum Exam - Vagina: normal appearance of the vagina and normal vaginal discharge Speculum Exam - Cervix: normal appearance of the cervix Bimanual exam- vagina & uterus: uterine size normal and consistency normal Bimanual Exam- Adnexa, other: normal adnexae and No adnexal tenderness Neuro: General: patient oriented x3 Assessment and Plan Assessment and plan (1) Menorrhagia: Code(s): N92.0 - Excessive and frequent menstruation with regular cycle Status: Acute Assessment and Plan: Plan to proceed with Swapna endometrial ablation
[2024-11-11 08:10] VITALS: BMI 33.0
[2024-11-11 08:11] VITALS: BP 117/71; PULSE 88; RESP 16; TEMP 36.1; O2SAT 100
[2024-11-11] MEDS: LACTATED RINGERS 1,000 ML 30 ML IV CONT (08:40)
[2024-11-11] MEDS: ACETAMINOPHEN 500 MG TABLET 1000 MG PO (08:47)
[2024-11-11 09:02] LABS: BEDSIDEPREGUCG Negative (Negative)
[2024-11-11] MEDS: LIDOCAINE 1% LOCAL INJ 10 ML VIAL INFILTRATE (09:33)
[2024-11-11 09:55] VITALS: BP 107/75; PULSE 67; RESP 18; O2SAT 100
--- NOTE | 2024-11-11 09:55 | P.OP_ITS ---
Procedure Note - Detailed Date of Procedure 11/11/24 Pre-op Diagnosis Menorrhagia Post-op Diagnosis Same Procedure Performed Hysteroscopy with Swapna endometrial ablation Surgeon Emelyn Saez MD Anesthesia MAC and Local Findings Uterus sounds to 9cm and appears grossly normal. Description of Procedure The patient was taken to the operating room and placed under anesthesia in the dorsal lithotomy position. She was prepped and draped in the usual sterile fashion. [place] speculum was placed in the vagina and the cervix grasped on the anterior lip with a tenaculum. The uterus is sounded to 9cm. The diagnostic hysteroscope was placed and with no abnormalities noted it is removed. The ablation device is opened. The cervix was serially dilated to an 8 Hegar. The Swapna endometrial ablation device is placed set at 6 length. The CO2 indicator never moved off of the far right side. The device was removed and replaced and the same thing occurred. A 2nd device was opened and placed and the CO2 indicator went to the green side. The cavity assessment passed on the 1st attempt and the treatment cycle lasted the full 2minutes. The device is removed and the hysteroscope replaced with a good ablation effect noted. All instruments are removed. Patient was awakened from anesthesia and taken to recovery in stable condition. Sponge, needle, and instrument counts are correct per the OR staff. Estimated Blood Loss 5 Drains No Packing No Pathology None sent Complications No immediate complications Condition Stable Disposition PACU
[2024-11-11 10:25] VITALS: BP 115/75; PULSE 64; O2SAT 99
[2024-11-11] MEDS: oxyCODONE HCL (*CRX) 5 MG TAB IR PO (10:35)
[2024-11-11 10:45] VITALS: BP 113/66; PULSE 63
== END 2024-11-11 10:52 | disposition home or self-care (01) ==
PROVIDERS: Anesthesiology; PCP Nurse Practitioner; Visit Provider Obstetrics & Gynecology Gynecology
PROC: 0U5B8ZZ Destruction of Endometrium, Via Natural or Artificial Opening Endoscopic (ICD-10-PCS; CPT 58563; principal; 2024-11-11 10:00)
DX: N92.0 Excessive and frequent menstruation with regular cycle (principal); N84.0 Polyp of corpus uteri; Z87.891 Personal history of nicotine dependence
CPT/HCPCS: 58563; A9270; J2003; J2250; J2405; J2704; J3010; J7120